=== PATIENT | male | born 1985 | race African-American/Black ===

== ENCOUNTER 2021-11-07 08:16 | Inpatient (IN) | payer OTHER, SELFPAY ==
[2021-11-07 10:28] LABS: #Eosinphils 0.2 10x3/uL (0.0-0.5); #Monocytes 0.6 10x3/uL (0.0-1.1); #Neutrophils 3.8 10x3/uL (1.5-8.4); %Basophils 0.6 % (0.0-2.0); %Eosinophils 3.4 % (0.0-6.0); %Lymphocytes 27.5 % (18.0-47.0); %Monocytes 9.4 % (0.0-10.0); %Neutrophils 58.8 % (40.0-75.0); Hemoglobin 13.4 g/dL (13.5-17.5); Mean Corpuscular HGB CONC 32.4 g/dL (32.0-36.0); Mean Corpuscular Hemoglobin 29.1 pg (27.0-33.0); Mean Corpuscular Volume 89.6 fl (81.2-95.1); Mean Platelet Volume 11.1 fl (7.4-10.4); Platelet Count 233 10x3/uL (150-450); RBC Distribution Width 12.1 % (11.5-14.5); Red Blood Cell (RBC) Count 4.61 10x6/uL (4.32-5.72); White Blood Cell (WBC) Count 6.4 10x3/uL (3.5-10.5)
[2021-11-07 10:43] LABS: ALT (SGPT) 36 U/L (8-55); AST (SGOT) 71 U/L (5-34); Albumin 4.2 g/dL (3.5-5.0); Alkaline Phosphatase 70 U/L (40-110); Anion Gap 13 mmol/L (10-20); BUN (Urea Nitrogen) 11 mg/dL (8.9-20.6); Bilirubin, Total 0.7 mg/dL (0.2-1.2); Calc. Creatinine Clearance 0 mL/min (70-130); Calcium 9.4 mg/dL (7.8-10.44); Carbon Dioxide 28 mmol/L (22-29); Chloride 101 mmol/L (98-107); Globulin 3.6 g/dL (2.4-3.5); Glucose 161 mg/dL (70-105); Lipase 13 U/L (8-78); Potassium 4.4 mmol/L (3.5-5.1); Protein, Total 7.8 g/dL (6.0-8.3); Sodium 138 mmol/L (136-145)
[2021-11-07 11:17] LABS: CKMB 63.3 ng/mL (0-6.6)
[2021-11-07] MEDS ORDERED: Enoxaparin Sodium 100 MG/ML SYRINGE ONE (11:56)
[2021-11-07] MEDS ORDERED: Aspirin 325 MG TAB ONE (11:56)
[2021-11-07] MEDS ORDERED: Enoxaparin Sodium 60 MG/0.6 ML SYRINGE ONE (12:03)
[2021-11-07] MEDS ORDERED: Nitroglycerin 0.4 MG TAB (25 Tab Bottle) SL PRN (15:37)
[2021-11-07 16:07] VITALS: BMI 51.5
[2021-11-07] MEDS ORDERED: Heparin 10,000 UNITS/ 10 ML VIAL ONE ×2 (16:09→17:31)
[2021-11-07] MEDS ORDERED: Nitroglycerin 50 MG/250 ML BOT 250 ML ONE (16:09)
[2021-11-07] MEDS ORDERED: Adenosine 6 MG/2 ML VIAL ONE (16:10)
[2021-11-07] MEDS ORDERED: Lidocaine 1% PF 5 ML VIAL ONE (16:10)
[2021-11-07] MEDS ORDERED: Midazolam HCl 2 mg/2 ml Vial ONE ×2 (16:16→16:36)
[2021-11-07] MEDS ORDERED: Fentanyl 100 MCG/2 ML VIAL ONE ×2 (16:16→16:36)
[2021-11-07 16:34] LABS: SARS-CoV-2 NAA Rapid Test Not Detected (NotDetected)
[2021-11-07] MEDS ORDERED: Verapamil 5 MG/2 ML VIAL ONE (16:35)
[2021-11-07] MEDS ORDERED: Lidocaine 1% (PF) 30 ML VIAL ONE (17:06)
[2021-11-07] MEDS ORDERED: TICAGRELOR 90 MG TABLET ONE (17:13)
[2021-11-07 17:17] LABS: CKMB 50.7 ng/mL (0-6.6)
[2021-11-07] MEDS ORDERED: Metoprolol Tartrate 5 MG/5 ML VIAL ONE ×3 (17:19→17:54)
[2021-11-07] MEDS ORDERED: Protamine Sulfate 50 MG/5 ML VIAL ONE (18:02)
[2021-11-07] MEDS: Sodium Chloride 0.9% 1,000 ML IV SCH (19:45)
[2021-11-07] MEDS: Nitroglycerin 2% Ointment 1 INCH/1 GM Packet TOP SCH (20:28)
[2021-11-07] MEDS: TICAGRELOR 90 MG TABLET PO SCH (20:29)
[2021-11-07] MEDS: Atorvastatin Calcium 40 MG TAB PO SCH (20:29)
[2021-11-07] MEDS ORDERED: Enoxaparin Sodium 100 MG/ML SYRINGE SC SCH (21:00)
[2021-11-07] MEDS ORDERED: Enoxaparin Sodium 80 MG/0.8 ML SYRINGE SC SCH (21:00)
[2021-11-07] MEDS ORDERED: Metoprolol Tartrate 5 MG/5 ML VIAL IVP SCH (22:00)
[2021-11-07 22:08] LABS: CKMB 51.4 ng/mL (0-6.6)
[2021-11-08 06:22] LABS: #Eosinphils 0.1 10x3/uL (0.0-0.5); #Monocytes 1.2 10x3/uL (0.0-1.1); #Neutrophils 4.5 10x3/uL (1.5-8.4); %Basophils 0.5 % (0.0-2.0); %Lymphocytes 30.1 % (18.0-47.0); %Neutrophils 54.2 % (40.0-75.0); Hemoglobin 12.9 g/dL (13.5-17.5); Mean Corpuscular HGB CONC 32.8 g/dL (32.0-36.0); Mean Corpuscular Hemoglobin 29.2 pg (27.0-33.0); Mean Corpuscular Volume 88.9 fl (81.2-95.1); Mean Platelet Volume 10.6 fl (7.4-10.4); Platelet Count 223 10x3/uL (150-450); RBC Distribution Width 12.3 % (11.5-14.5); Red Blood Cell (RBC) Count 4.42 10x6/uL (4.32-5.72); White Blood Cell (WBC) Count 8.3 10x3/uL (3.5-10.5)
[2021-11-08] MEDS: Nitroglycerin 2% Ointment 1 INCH/1 GM Packet TOP SCH ×3 (06:41→20:56)
[2021-11-08] MEDS: Sodium Chloride 0.9% 1,000 ML IV SCH ×2 (06:41→16:22)
[2021-11-08 06:52] LABS: ALT (SGPT) 34 U/L (8-55); AST (SGOT) 85 U/L (5-34); Albumin 4.2 g/dL (3.5-5.0); Alkaline Phosphatase 63 U/L (40-110); Anion Gap 14 mmol/L (10-20); BUN (Urea Nitrogen) 10 mg/dL (8.9-20.6); Bilirubin, Total 1.7 mg/dL (0.2-1.2); Calc. Creatinine Clearance 262 mL/min (70-130); Calcium 9.4 mg/dL (7.8-10.44); Carbon Dioxide 25 mmol/L (22-29); Chloride 102 mmol/L (98-107); Glucose 160 mg/dL (70-105); Protein, Total 8.2 g/dL (6.0-8.3); Sodium 137 mmol/L (136-145)
[2021-11-08] MEDS: Carvedilol 6.25 MG TAB PO SCH ×2 (08:00→16:21)
[2021-11-08] MEDS: Aspirin Chewable 81 MG TAB PO SCH (08:01)
[2021-11-08] MEDS: TICAGRELOR 90 MG TABLET PO SCH ×2 (08:02→20:56)
[2021-11-08 08:10] LABS: CKMB 19.7 ng/mL (0-6.6)
[2021-11-08] MEDS ORDERED: Lisinopril 2.5 MG TAB PO SCH (09:00)
[2021-11-08 13:07] LABS: Hemoglobin A1c 6.2 % (4.0-6.0)
[2021-11-08 14:44] LABS: CKMB 11.1 ng/mL (0-6.6)
[2021-11-08] MEDS ORDERED: Lisinopril 5 MG TAB PO SCH (15:00)
[2021-11-08] MEDS: Atorvastatin Calcium 40 MG TAB PO SCH (20:55)
[2021-11-08 23:09] LABS: CKMB 6.2 ng/mL (0-6.6)
[2021-11-08 23:29] LABS: Critical Call CKMB NOT CALLED
[2021-11-09] MEDS ORDERED: Dextrose 5% in Water 1,000 ML IV PRN (05:18)
[2021-11-09] MEDS ORDERED: HumaLOG 300 UNITS/3 ML VIAL SC PRN (05:18)
[2021-11-09] MEDS ORDERED: Dextrose 50% Abboject 50 ML SYRINGE SLOW IVP PRN (05:18)
[2021-11-09] MEDS: Sodium Chloride 0.9% 1,000 ML IV SCH (05:43)
[2021-11-09] MEDS: Nitroglycerin 2% Ointment 1 INCH/1 GM Packet TOP SCH (06:07)
[2021-11-09 06:22] LABS: ALT (SGPT) 25 U/L (8-55); AST (SGOT) 41 U/L (5-34); Albumin 3.8 g/dL (3.5-5.0); Alkaline Phosphatase 59 U/L (40-110); Anion Gap 12 mmol/L (10-20); BUN (Urea Nitrogen) 9 mg/dL (8.9-20.6); Bilirubin, Total 1.5 mg/dL (0.2-1.2); Calc. Creatinine Clearance 229 mL/min (70-130); Carbon Dioxide 28 mmol/L (22-29); Cardiac Risk 4.3 (Less than 4.5); Chloride 103 mmol/L (98-107); Cholesterol 165 mg/dl (< 200 Desired); Globulin 3.8 g/dL (2.4-3.5); Glucose 149 mg/dL (70-105); HDL Cholesterol 38 mg/dL (>60 Neg Risk); LDL Cholesterol, Calculated 103 mg/dL; Potassium 4.1 mmol/L (3.5-5.1); Protein, Total 7.6 g/dL (6.0-8.3); Sodium 139 mmol/L (136-145); Triglycerides 120 mg/dL (Less than 150)
[2021-11-09] MEDS: TICAGRELOR 90 MG TABLET PO SCH (08:00)
[2021-11-09] MEDS: Aspirin Chewable 81 MG TAB PO SCH (08:01)
[2021-11-09] MEDS: Carvedilol 6.25 MG TAB PO SCH (08:09)
[2021-11-09] MEDS ORDERED: Lisinopril 5 MG TAB PO SCH (09:00)
[2021-11-09 12:04] VITALS: TEMP 98
[2021-11-09 15:53] VITALS: BP 156/80
[2021-11-09] MEDS ORDERED: Carvedilol 12.5 MG TAB PO SCH (17:00)
== END 2021-11-09 17:10 | disposition home or self-care (01) | DRG 247 ==
LOC: CSHERS 08:16 → CSHTELE 13:32
PROVIDERS: ADMIT Family Medicine; ATTEND Internal Medicine
PROC: 027034Z Dilation of Coronary Artery, One Artery with Drug-eluting Intraluminal Device, Percutaneous Approach (ICD-10-PCS; principal; 2021-11-07)
PROC: 4A023N7 Measurement of Cardiac Sampling and Pressure, Left Heart, Percutaneous Approach (ICD-10-PCS; 2021-11-07)
PROC: B2111ZZ Fluoroscopy of Multiple Coronary Arteries using Low Osmolar Contrast (ICD-10-PCS; 2021-11-07)
PROC: B2151ZZ Fluoroscopy of Left Heart using Low Osmolar Contrast (ICD-10-PCS; 2021-11-07)
PROC: B241ZZ3 Ultrasonography of Multiple Coronary Arteries, Intravascular (ICD-10-PCS; 2021-11-07)
DX: I21.09 ST elevation (STEMI) myocardial infarction involving other coronary artery of anterior wall (principal); Z68.43 Body mass index [BMI] 50.0-59.9, adult; I25.5 Ischemic cardiomyopathy; Z20.822 Contact with and (suspected) exposure to COVID-19; I10 Essential (primary) hypertension; E78.5 Hyperlipidemia, unspecified; R73.03 Prediabetes; Z96.698 Presence of other orthopedic joint implants; K21.9 Gastro-esophageal reflux disease without esophagitis; E66.01 Morbid (severe) obesity due to excess calories; R73.9 Hyperglycemia, unspecified; Z79.82 Long term (current) use of aspirin; Z79.899 Other long term (current) drug therapy; Z82.49 Family history of ischemic heart disease and other diseases of the circulatory system; F17.290 Nicotine dependence, other tobacco product, uncomplicated
CPT/HCPCS: 0240U; 36415; 36416; 71045; 80053; 80061; 82553; 83036; 83690; 84484; 85025; 85347; 85379; 92941; 92978; 92979; 93005; 93010; 93306; 93458; 96372; 97139; 99152; 99153; C1753; C1760; C1776; C1874; C1887; C9606; J0153; J1644; J1650; J1815; J2001; J2250; J2720; J3010; J7050